=== PATIENT | female | born 1950 | race Caucasian/White ===

== ENCOUNTER → 2018-09-23 | Outpatient (CLI) | payer OTHER | END | disposition home or self-care (01) | LOC: RAD 14:03 | PROVIDERS: ATTEND Urology | DX: N20.0 Calculus of kidney (principal); N20.9 Urinary calculus, unspecified | CPT/HCPCS: 74018 ==

== ENCOUNTER 2018-10-16 13:54 | Outpatient (CLI) | payer OTHER | END 2018-10-16 23:59 | disposition home or self-care (01) | LOC: RAD 13:54 | PROVIDERS: ATTEND Urology | DX: N20.0 Calculus of kidney (principal) | CPT/HCPCS: 74018 ==